=== PATIENT | female | born 1960 | race Caucasian/White ===

== ENCOUNTER → 2023-05-24 06:23 | Day surgery (SDC) | payer BC, SELFPAY | LOC: GI 06:23 | PROVIDERS: ATTENDING PHYSICIAN Internal Medicine Gastroenterology | DX: Z12.11 Encounter for screening for malignant neoplasm of colon (principal); K57.30 Diverticulosis of large intestine without perforation or abscess without bleeding; K64.8 Other hemorrhoids; K56.699 Other intestinal obstruction unspecified as to partial versus complete obstruction; D12.5 Benign neoplasm of sigmoid colon; K44.9 Diaphragmatic hernia without obstruction or gangrene; K22.2 Esophageal obstruction; K31.89 Other diseases of stomach and duodenum; K22.89 Other specified disease of esophagus; R12 Heartburn; K29.50 Unspecified chronic gastritis without bleeding; K20.0 Eosinophilic esophagitis | CPT/HCPCS: 45380; 43239; 88305; 88342 ==

== ENCOUNTER → 2023-10-18 17:50 | Outpatient (REF) | payer BC, SELFPAY | LOC: WDC 17:50 | PROVIDERS: ATTENDING PHYSICIAN Family Medicine | DX: Z12.31 Encounter for screening mammogram for malignant neoplasm of breast (principal) | CPT/HCPCS: 77063; 77067 ==

== ENCOUNTER 2024-09-28 18:13 | Inpatient (IN) | payer BC, SELFPAY ==
[2024-09-28] VITALS (7 sets, daily range): BP systolic 83–133; BP diastolic 67–90; BMI 24.0; BMI 24.2
--- NOTE | 2024-09-28 13:46 | ED.GENMED ---
History of Present Illness
General
Chief Complaint: Abdominal Symptoms
Source: patient
Exam Limitations: none
Time Seen by Provider: 09/28/24 13:45
History of Present Illness
History of Present Illness:
64yoF with a history of hyperlipidemia, asthma, migraines, GERD, and anxiety presenting for evaluation of abdominal pain. Patient woke up this morning with an upset stomach. She started to have nausea and vomiting. She then developed a tightness
in her epigastric region which radiated to the right upper quadrant. Symptoms lasted throughout the morning but seem to subside while in the waiting room. She had a similar episode about a week and a half ago. Yesterday was her birthday and she
ate shrimp tempura at a [employer] restaurant. She also had a lot of sweets. She denies any chest pain, fevers, urinary symptoms, diarrhea. Previous abdominal surgeries include a Niesen fundoplication, vaginal sling, and section.
Past History
Past History
ED Past Medical History: Asthma, GERD (hiatel hernia), Hypercholesterolemia and Other (Migraines, irritable bowel )
ED Past Surgical History:
Social History
Tobacco: Non-smoker
Alcohol: Occasional
Drug: None
Personal:
Living: with family
Employment: Employed
Phy Exam
General Physical Exam
General Presentation: well appearing and no apparent distress
General Skin: warm and dry
General Habitus: normal
General Mental: alert
ENT Exam
ENT Exam: normocephalic
Cardiovascular Exam
Cardiovascular Exam: regular rate/rhythm and no murmur
Pulmonary Exam
Pulmonary Exam: lungs clear, no respiratory distress, no rales, no crackles, no rhonchi and no wheezing
Gastrointestinal Exam
Gastrointestinal Exam: soft, non distended and other (+RUQ tenderness. +Whittaker's sign. )
Neurological Exam
Neurological Exam: alert
Kiki Coma Scale
Eye Opening: Spontaneous
Verbal Response: Oriented
Motor Response: Obeys Commands
GCS Total Score: 15
Skin Exam
Skin Exam: normal color and warm/dry
Psychiatric Exam
Psychiatric Exam: normal mood/affect
Course
Orders/Labs/Results
Orders:
Orders
09/28/24 12:30
EKG [Electrocardiogram (*1)] Urgent
Reason for Study: Chest Pain
EKG- Treatment ONCE
09/28/24 13:56
Cardiac Monitoring- Treatment ONCE
0.9% Sodium Chloride 1000 ml [Nss] 1,000 ml IV BOLUS
US Abdomen Complete/Upper Urgent
Comment:
Reason For Exam: RUQ pain
09/28/24 14:12
Complete Blood Count/With Diff Urgent
Comprehensive Metabolic Panel Urgent
Lipase Urgent
Troponin I Urgent
09/28/24 15:33
Urinalysis Reflex To Culture Urgent
Date Specimen was Collected: 09/28/24
Time Specimen was Collected: 13:57
09/28/24 16:44
Piperacillin/Tazo 4.5 Gram [Zosyn] 4.5 gram in 100 ml IV NOW
Abnormal Lab Results
09/28/24
14:12
WBC 11.6 H 10^3/uL
(4.8-10.8)
Absolute Neuts (auto) 9.5 H 10^3/uL
(1.4-6.5)
Neutrophils % 82.3 H %
(42.2-75.2)
Lymphocytes % 12.9 L %
(20.5-51.1)
Glucose 110 H mg/dl
(70-99)
AST 492 H U/L
(14-36)
ALT 217 H U/L
(0-35)
Alkaline Phosphatase 140 H U/L
(38-126)
09/28/24 14:12
09/28/24 14:12
Vital Signs
Initial and Last Documented VS:
Initial Vital Signs
Temp Pulse Resp BP Pulse Ox
98.3 F 96 16 133/90 98
09/28/24 12:02 09/28/24 12:02 09/28/24 12:02 09/28/24 12:02 09/28/24 12:02
Last Documented Vital Signs
Temp Pulse Resp BP Pulse Ox
98.6 F 71 16 83/72 100
09/28/24 14:20 09/28/24 14:20 09/28/24 14:20 09/28/24 14:20 09/28/24 14:20
MDM/Problems Addressed
Differential Diagnosis Includes:
64yoF here with RUQ pain and vomiting that began this morning. Ate at a restaurant for dinner last night. Similar episode 1.5 weeks ago. VSS. She is well appearing and does admit to feeling better. +Whittaker's sign on abdominal exam. Differential
diagnosis includes but is not limited to: Biliary colic, cholecystitis, pancreatitis, consider ACS
Initial ED plan: Triage EKG shows normal sinus rhythm without ischemic changes. Check abdominal labs, troponin, and upper abdominal ultrasound.
*Pulse Oximetry
SaO2: 98
Oxygen Mode of Delivery: Room air
Patient hypoxic: no (98%)
*EKG
Interpreted by ED Provider?: Yes
EKG Intrepretation Date: 09/28/24
Heart Rate: 76
Rate: normal
Rhythm: sinus
[place]: normal axis
Interval: normal interval
QRS Pattern: normal QRS
Ischemia: no ischemia
*Critical Care Note
Total Time (30-74mins, 75-104mins- exclusive of procedures): Not Applicable
Update Note
Update Note:
Ultrasound shows findings suggestive of cholecystitis. Common bile duct is slightly distended at 8 mm. AST 492, ALT 219, and total bilirubin is normal. White count 11.6. Lipase normal making pancreatitis unlikely. IV Zosyn ordered. General
surgery notified and patient admitted for further management.
ED Attending Note
-
Portions of this chart may have been created with voice recognition software.� Occasional wrong word or��sound alike� substitutions may have occurred due to the inherent limitations of voice recognition software.
Discharge Plan
Departure
Patient Disposition: Admit
Date of Disposition: 09/28/24
Time of Disposition: 16:45
Presentation/result/management discussed w/ accepting MD/DO: Hospitalist
Discharge Problem:
Acute cholecystitis, Transaminitis
Prescriptions:
No Action
trazodone 50 MG tablet
50 mg PO HSPRN PRN (Reason: insomnia)
hydroxyzine pamoate [Vistaril] 50 MG capsule
50 mg PO PRN PRN (Reason: anxiety)
esomeprazole magnesium [Nexium] 40 MG capsule,delayed release(DR/EC)
40 mg PO DAILY
pramipexole 0.25 MG tablet
0.25 mg PO DAILY
lisinopril 5 MG tablet
5 mg PO DAILY
sertraline 50 MG tablet
50 mg PO DAILY
lamotrigine 100 MG tablet
200 mg PO DAILY
sucralfate 1 GM/10 ML suspension
1 gm PO QID Qty: 400 0RF
Rx Instructions:
take 1 hr prior to meals and at bedtime
Referrals:
Luis Chairez DO [Family Provider, Family Practice]
Interventions
Interventions:
*Risk Screen - Suicide Last Done: 09/28/24 12:03
*General Assessment Last Done: 09/28/24 14:20
*Neglect/Abuse Screening Last Done: 09/28/24 12:03
*ED- Fall Risk Assessment Last Done: 09/28/24 14:20
*ED COVID-19 Vaccine History Last Done: 09/28/24 14:20
CS-Thwreb-Snplcrmnlv Assessment Last Done: 09/28/24 14:20
Discharge Date and Time
Print Language: BENINESE
[2024-09-28] MEDS: NSS 1000 IV ×2 (14:15→21:03)
[2024-09-28 14:18] LABS: Hematocrit 40.8 % (37.0-47.0); Hemoglobin 13.8 g/dL (12.0-16.0); Mean Corp Hgb Conc. 33.8 g/dL (33.0-37.0); Mean Corpuscular Volume 86.4 fL (81.0-99.0); Nucleated Red Blood Cells % 0 %; Platelet Count 248 10^3/uL (130-400); Red Cell Dist. Width 12.4 % (11.5-14.5)
[2024-09-28 14:42] LABS: ALT (SGPT) 217 U/L (0-35); AST (SGOT) 492 U/L (14-36); Albumin 4.7 g/dl (3.5-5.0); Alkaline Phosphatase 140 U/L (38-126); Blood Urea Nitrogen 10 mg/dl (7-17); Calcium 9.2 mg/dl (8.4-10.2); Carbon Dioxide 29 mmol/L (22-30); Chloride 104 mmol/L (98-107); Estimated Creatinine Clearance 66 ml/min; Glucose 110 mg/dl (70-99); Lipase 49 U/L (23-300); Potassium 4.5 mmol/L (3.5-5.1); Sodium 140 mmol/L (135-145); Total Protein 6.9 g/dl (6.3-8.2); eGFR > 60.00
[2024-09-28 14:53] LABS: Troponin I < 0.012 ng/ml
[2024-09-28 15:40] LABS: Urine Character Clear (Clear)
--- NOTE | 2024-09-28 17:17 | HPS.HSE ---
Family Physician
-
Family Physician: Luis Chairez
Chief Complaint
-
nausea and vomiting
History of Present Illness
HPI
64F HX hyperlipidemia, asthma,GERD, and anxiety seen at ER:
- acute onset of nausea and vomiting
- associated with tightness in her epigastric region which radiated to the right upper quadrant.
- Symptoms lasted throughout the morning but seem to subside while in the waiting room.
- similar episode about a week and a half ago.
- Yesterday was her birthday and she ate shrimp tempura at a [employer] restaurant. She also had a lot of sweets.
Previous abdominal surgeries include a Conteh fundoplication, vaginal sling, and section.
ROS
She denies any chest pain, fevers, urinary symptoms, diarrhea.
Medical History
Past Medical History
Past Medical History: Reports Asthma, GERD, HTN and Hypercholesterolemia
Past Surgical History: Reports Other
Social History
Tobacco: Non-smoker
Alcohol: None
Family History
Family History: Not pertinent
Allergies / Home Medications
Allergies reflects when Allergies were last updated in [facility].
Home Medications with original date entered in [facility]
Allergy/Medication List:
Allergies
Allergy/AdvReac Type Severity Reaction Status Date / Time
Benzodiazepines Allergy SEIZURE Verified 08/14/21 11:17
WITH
WITHDRAWAL
FROM
BENZODIAZEPINES
levofloxacin (From Levaquin) Allergy Nausea / Verified 08/14/21 11:17
Vomiting
Sulfa (Sulfonamide Allergy Hives Verified 08/14/21 11:17
Antibiotics)
Home Medications
esomeprazole magnesium 40 mg capsule,delayed release (Nexium) 40 mg PO DAILY 05/02/15
hydroxyzine pamoate 50 mg capsule (Vistaril) 50 mg PO PRN PRN anxiety 05/02/15
lamotrigine 100 mg tablet 200 mg PO DAILY 05/02/15
lisinopril 5 mg tablet 5 mg PO DAILY 05/02/15
pramipexole 0.25 mg tablet 0.25 mg PO DAILY 05/02/15
sertraline 50 mg tablet 50 mg PO DAILY 05/02/15
trazodone 50 mg tablet 50 mg PO HSPRN PRN insomnia 05/02/15
sucralfate 100 mg/mL oral suspension 1 gm PO QID #400 mL 01/12/20
Review of Systems
-
Constitutional: Reports No Symptoms
EENT: Reports No Symptoms
Respiratory: Reports No Symptoms
Cardiac: Reports No Symptoms
Abdomen/GI: Reports Abdominal Pain, Nausea and Vomiting
: Reports No Symptoms
Musculoskeletal: Reports No Symptoms
Skin: Reports No Symptoms
Neurological: Reports No Symptoms
Endocrine: Reports No Symptoms
Hematologic/Lymphatic: Reports No Symptoms
Psych: Reports No Symptoms
Physical Exam
Vital Signs
Vital Signs
Temp Pulse Resp BP Pulse Ox
98.6 F 71 16 83/72 100
09/28/24 14:20 09/28/24 14:20 09/28/24 14:20 09/28/24 14:20 09/28/24 14:20
Physical Exam
General: Well Developed, Well Nourished and No Apparent Distress
HEENT: NormoCephalic, Moist mucous membranes and Atraumatic
Respiratory: Clear
Cardiac: S1/S2 and Regular Rhythm; No Murmur or Rub
GI: Soft, Non Distended, Normal Bowel Sounds and Tender (RUQ tenderness with deep palpation ); No Organomegaly
Rectal: Deferred by Provider
Musculoskeletal: No Clubbing, No Cyanosis and No Edema
Skin: No Rash
Neuro: Nonfocal/grossly intact
Laboratory Results
-
09/28/24 14:12
09/28/24 14:12
Laboratory Results
Total Bilirubin 1.1 mg/dl (0.2-1.3) 09/28/24 14:12
AST 492 U/L (14-36) H 09/28/24 14:12
ALT 217 U/L (0-35) H 09/28/24 14:12
Alkaline Phosphatase 140 U/L (38-126) H 09/28/24 14:12
Troponin I < 0.012 ng/ml 09/28/24 14:12
Lipase 49 U/L (23-300) 09/28/24 14:12
Data Reviewed
-
Ultrasound: Report Reviewed by me
Lab Data: Labs Reviewed by me
Impression/Plan
-
Vital Signs
Temp Pulse Resp BP Pulse Ox
98.6 F 71 16 83/72 100
09/28/24 14:20 09/28/24 14:20 09/28/24 14:20 09/28/24 14:20 09/28/24 14:20
Abnormal Lab Results
09/28/24
14:12
WBC 11.6 H
Absolute Neuts (auto) 9.5 H
Neutrophils % 82.3 H
Lymphocytes % 12.9 L
Glucose 110 H
AST 492 H
ALT 217 H
Alkaline Phosphatase 140 H
EKG
NORMAL SINUS RHYTHM
NORMAL ECG
WHEN COMPARED WITH ECG OF 14-Aug-2021 11:31,
QT HAS SHORTENED
US Abdomen Complete/Upper
- Cholelithiasis with 6 mm gallstone.
- Gallbladder wall thickening. This could suggest cholecystitis in the proper clinical setting.
- However, negative sonographic Whittaker sign. Recommend correlation with any pain medication administration.
- Slightly distended common bile duct, 8 mm.
- Mild fatty infiltration of liver. Hepatic cysts. Tiny left renal cyst.
ASSESSMENT & PLAN
Suspect acute calculus cholecystitis with dilated CBD
Cholelithiasis with 6 mm gallstone with Biliary colic
RUQ tenderness with deep palpation
Leucocytosis +Nl TB with significant transaminitis, normal lipase
POS US for GBWT but no PCF
- GS consulted
- NPO and IVF
- PRN IV narcotic
- PRN antiemetics
- agree with empiric Zosyn
Hypotensive on arrival
Benign HTN
- Hold Lisinopril
GERD
- IV PPI in pacer of PO PPI daily m
Known HX
HLD
Anxiety; on Sertraline
DVT Px: SCD
Full code
IP MS
[2024-09-28] MEDS: ZOSYN 100 IV (17:43)
--- NOTE | 2024-09-28 19:49 | CON.GS ---
Consultation
-
Date/Time Consultation Performed: 09/28/2024
Performing Provider: Demetrius Peña MD
Reason for Consultation: Cholecystitis
Medical History
-
History of Present Illness:
Patient is a 64-year-old female with PMH of HLD, anxiety, breast cancer s/p RT and right lumpectomy, GERD s/p Yaritza 12 years ago with recurrent symptoms who presents for concern of right upper quadrant abdominal pain. This occurred 1 week ago and
resolved after few hours. It recurred again earlier today. She described the pain as epigastric, radiating to the right upper quadrant, constant in nature. Associated with N/V. This episode did not improve so she came to the ED. She denies
chest pain, but had some associated dyspnea. Denies fevers, urinary symptoms or change in bowel habits. In the ED, WBC was 11.6, T. bili 1.1, AST 492, ALT 217, lipase 49, CR 0.7, RUQ U/S showing gallstones, gallbladder wall thickening and elevated
CBD up to 8 mm.
Past Medical History
Past Medical History: Other (As above)
Past Surgical History: Other (Yaritza 12 years ago, right lumpectomy, vaginal sling, , cataracts)
Social History
Tobacco: Non-Smoker
Alcohol: None
Drug: None
Family History
Family History: Reviewed & Not Pertinent (No family history of CRC, family history of breast cancer)
Allergies / Home Medications
Allergy/AdvReac Type Severity Reaction Status Date / Time
Benzodiazepines Allergy SEIZURE Verified 08/14/21 11:17
WITH
WITHDRAWAL
FROM
BENZODIAZEPINES
levofloxacin (From Levaquin) Allergy Nausea / Verified 08/14/21 11:17
Vomiting
Sulfa (Sulfonamide Allergy Hives Verified 08/14/21 11:17
Antibiotics)
�Medication �Instructions �Recorded �Confirmed �Type
esomeprazole magnesium 40 mg 40 mg PO DAILY 05/02/15 09/28/24 History
capsule,delayed release (Nexium)
hydroxyzine pamoate 50 mg capsule 50 mg PO PRN PRN anxiety 05/02/15 09/28/24 History
(Vistaril)
lamotrigine 100 mg tablet 200 mg PO DAILY 05/02/15 09/28/24 History
lisinopril 5 mg tablet 5 mg PO DAILY 05/02/15 09/28/24 History
pramipexole 0.25 mg tablet 0.25 mg PO DAILY 05/02/15 09/28/24 History
sertraline 50 mg tablet 50 mg PO DAILY 05/02/15 09/28/24 History
trazodone 50 mg tablet 50 mg PO HSPRN PRN insomnia 05/02/15 09/28/24 History
sucralfate 100 mg/mL oral 1 gm PO QID #400 mL 01/12/20 09/28/24 Rx
suspension
Review of Systems
-
A 10 point review of systems was completed, and was negative except as per HPI.
Physical Exam
Vital Signs
Temp Pulse Resp BP Pulse Ox
97.8 F 76 20 115/81 98
09/28/24 19:41 09/28/24 18:05 09/28/24 18:05 09/28/24 18:05 09/28/24 19:41
09/27/24 09/28/24 09/29/24
06:59 06:59 06:59
Actual Weight 59.421 kg
Body Mass Index (BMI) 24.0
Lab Results
09/28/24 14:12
09/28/24 14:12
WBC 11.6 10^3/uL (4.8-10.8) H 09/28/24 14:12
Hgb 13.8 g/dL (12.0-16.0) 09/28/24 14:12
Hct 40.8 % (37.0-47.0) 09/28/24 14:12
Plt Count 248 10^3/uL (130-400) 09/28/24 14:12
Abs Immat Gran (auto) 0.0 10^3/uL (0-0.05) 09/28/24 14:12
Neutrophils % 82.3 % (42.2-75.2) H 09/28/24 14:12
Physical Exam
General: Well Developed, Well Nourished and No Apparent Distress
HEENT: Normocephalic and Atraumatic
Respiratory: Non Labored Respirations
GI: Soft, Non Distended and Tender (Mildly tender in the RUQ without rebound or guarding; equivocal Whittaker sign)
Skin: Warm and Dry
Neuro: AO x 3
Data Reviewed
-
Ultrasound: Image Personally Visualized and interpreted and Discussed with Patient
Labs: Labs Reviewed by me and Discussed with Patient
Assessment / Plan
-
64-year-old female with PMH of HLD, anxiety, breast cancer s/p RT and right lumpectomy, GERD s/p Yaritza 12 years ago with recurrent symptoms who presents for concern of right upper quadrant abdominal pain. This occurred 1 week ago and resolved
after few hours. It recurred again earlier today. She described the pain as epigastric, radiating to the right upper quadrant, constant in nature. Associated with N/V. This episode did not improve so she came to the ED. She denies chest pain,
but had some associated dyspnea. Denies fevers, urinary symptoms or change in bowel habits. In the ED, WBC was 11.6, T. bili 1.1, AST 492, ALT 217, lipase 49, CR 0.7, RUQ U/S showing gallstones, gallbladder wall thickening and elevated CBD up to 8
mm.
AFVSS
�Concerning for acute cholecystitis, possible choledocholithiasis
�Reviewed pathophysiology of gallstones, cholecystitis and choledocholithiasis; as her T. bili is normal, but there was slight elevation in LFTs and diameter of CBD, it is possible that she either passed a stone or has early choledocholithiasis;
would trend labs in the a.m. to see if there is improvement; if so, discussed possible cholecystectomy this admission due to risk of recurrence; if there is any concern for choledocholithiasis on repeat labs, can consider MRCP versus ERCP versus
intraoperative cholangiogram; explained that general surgery would take over her care starting tomorrow
�No acute surgical intervention currently indicated
� Continue n.p.o. with IVF
� Continue IV Zosyn
� Recommend DVT PPx
� Appreciate hospitalist
--- NOTE | 2024-09-28 21:00 | PTCARENOTE ---
Receive pt from ER. Pt alert oriented X3, pleasant and cooperative, in no distress. Pt assisted X1 to bed. Pt oriented to the room, call carnes within reach. Pt denies abd pain, nausea, or vomiting. VSS (T=98.2, HR=92, RR=18, BI=689/71, SpO2=97% on
RA). Pt is NPO, IVFs infusing as per order. Will continue to monitor the pt..
[2024-09-28] MEDS: MIRAPEX 0.25 MG PO (21:04)
[2024-09-29] VITALS (14 sets, daily range): BP systolic 98–132; BP diastolic 61–83
[2024-09-29] MEDS: ZOSYN 50 IV ×4 (02:19→20:21)
[2024-09-29] MEDS: TORADOL 15 MG IV ×2 (02:25→20:29)
[2024-09-29] MEDS: TIGAN 200 MG IM (02:53)
[2024-09-29] MEDS: PROTONIX IV 40 MG IV (08:24)
[2024-09-29] MEDS: NSS (PRESERVATIVE FREE) 10 ML IV (08:24)
[2024-09-29] MEDS: ZOLOFT 75 MG PO (08:24)
[2024-09-29] MEDS: LAMICTAL 200 MG PO (08:24)
[2024-09-29 09:10] LABS: Hematocrit 37.3 % (37.0-47.0); Hemoglobin 12.5 g/dL (12.0-16.0); Mean Corp Hgb Conc. 33.5 g/dL (33.0-37.0); Mean Corpuscular Volume 86.9 fL (81.0-99.0); Platelet Count 220 10^3/uL (130-400); Red Cell Dist. Width 12.9 % (11.5-14.5)
[2024-09-29 09:17] LABS: INR 1.05; PT 14.0 Sec (11.4-14.6)
[2024-09-29] MEDS: NSS 1000 IV (09:29)
[2024-09-29 09:41] LABS: ALT (SGPT) 410 U/L (0-35); AST (SGOT) 366 U/L (14-36); Albumin 3.7 g/dl (3.5-5.0); Alkaline Phosphatase 145 U/L (38-126); Blood Urea Nitrogen 9 mg/dl (7-17); Calcium 8.4 mg/dl (8.4-10.2); Carbon Dioxide 28 mmol/L (22-30); Chloride 107 mmol/L (98-107); Estimated Creatinine Clearance 58 ml/min; Glucose 106 mg/dl (70-99); Lipase 40 U/L (23-300); Potassium 4.4 mmol/L (3.5-5.1); Sodium 138 mmol/L (135-145); Total Protein 5.8 g/dl (6.3-8.2); eGFR > 60.00
--- NOTE | 2024-09-29 09:55 | W.PN.GS2 ---
Today's Communication / Plan
-
OR today
Assessment / Plan
-
64 yo with h/o breast CA, Yaritza 12 years ago, vaginal sling, presenting with RUQ pain, suspect acute calculous cholecystitis. Bilirubin normal, transaminitis present. Leukocytosis resolved on labs today but with left shift. Afebrile,
vitals stable.
Plan:
NPO for OR today. Will plan laparoscopic cholecystectomy with cholangiogram to evaluate the biliary tree
Continue ABX
Analgesics/antiemetics prn
Subjective Data
-
Date of Service: September 29, 2024
Pt seen and examined at bedside with Dr. Gomez. Franci n/v. Still with RUQ tenderness. Questions addressed.
Objective Data
-
Intake and Output
09/28/24 09/29/24 09/30/24
06:59 06:59 06:59
Intake Total 750 / 750
Balance 750 / 750
Intake:
Oral fluids 0 / 0
IV fluids (Total) 700 / 700
IV piggybacks 50 / 50
Other:
Number of approximated MODERATE 2
amounts of urine
Vital Signs
Temp Pulse Resp BP Pulse Ox
98.2 F 70 18 116/73 98
09/29/24 07:48 09/29/24 07:48 09/29/24 07:48 09/29/24 07:48 09/29/24 07:48
Lab Results
09/29/24 08:55
09/29/24 08:55
Calcium 8.4 mg/dl (8.4-10.2) 09/29/24 08:55
Total Bilirubin 0.7 mg/dl (0.2-1.3) 09/29/24 08:55
AST 366 U/L (14-36) H 09/29/24 08:55
ALT 410 U/L (0-35) H 09/29/24 08:55
Alkaline Phosphatase 145 U/L (38-126) H 09/29/24 08:55
Total Protein 5.8 g/dl (6.3-8.2) L 09/29/24 08:55
Albumin 3.7 g/dl (3.5-5.0) 09/29/24 08:55
Physical Exam
-
NAD
ABD soft, RUQ tenderness, nd
--- NOTE | 2024-09-29 10:09 | W.SUR.PREOP ---
Pre-Operative Surgical Note
-
I have examined this patient prior to the performance of the scheduled procedure.
The patient's condition is unchanged from the time of the current History and
Physical and the patient is able to undergo the scheduled procedure.
--- NOTE | 2024-09-29 12:02 | CM ---
Placed a call to patient's spouse as patient was in procedure. Patient's spouse Jarad (not son as listed on chart), stated that patient lives with him in a two story single home with one steps to enter. He described her as independent with all
ADLs, personal care, dressing and bathing. She can cook, clean, do community aide and laundry. She drives and can get to appointments and and do all of her own shopping. She has never had VN. She has not been to a SNF in the past.
Patient has a prescription plan and uses, [facility] in [place] for all of her medications.
Her PCP is, Luis Chairez.
Plan: Case management will continue to follow and assist with discharge planning. Should be home no needs.
--- NOTE | 2024-09-29 13:46 | W.IMMPOSTOP ---
Surgical Immed Post Op Note
-
Primary Surgeon: Krishna Gomez MD
Assisting Surgeon: None
Pre-op Diagnosis: Acute cholecystitis
Post-op Diagnosis: Same
Procedure Performed: Laparoscopic cholecystectomy with cholangiogram
Anesthesia Type: General
Specimen / Cultures: Gallbladder and contents
Estimated Blood Loss: 7 cc
Complications: None
Operative Findings: Inflamed and edematous gallbladder. Critical view of safety obtained prior to cholangiogram which demonstrated normal but mildly dilated biliary anatomy and no distal filling defects. Duct ligated with a clip followed by 0 PDS
Endoloop.
POST OP PLAN:
Imaging: None
Labs: Routine AM
Diet: Advance to Regular as tolerated
Analgesia: Tylenol 650mg q6 Chris, Dilaudid 0.5mg q2h PRN
Neuro/vascular checks: Per unit protocol
AC/AP: Hold Therapeutic AC, Ok for DVT PPx
Activity: Ad Mary
Wound/Incisions/Drains: Routine
Abx: None
Dispo: RNF, anticipate discharge home later today versus early tomorrow. General surgery is taking over as primary.
--- NOTE | 2024-09-29 13:47 | OR.RPT ---
Operative Report
Operative Report
Patient Name: Clarissa Tesfaye
: 1960
Date of Operation: 09/29/2024
Preoperative Diagnosis: Acute cholecystitis
Postoperative Diagnosis: Same
Procedure(s):
Laparoscopic Cholecystectomy with Cholangiogram
Surgeon(s):
Dr. Gomez
Social Security Specialist(s):
Laura Morfin NP
Anesthesia: General
Estimated Blood Loss: 7 cc
Urine Output: None
Drains/Lines/Implants: None
Specimens:
1. Gallbladder and contents
HPI/Surgical Indications:
This is a 64-year-old female with a history of a previous laparoscopic Yaritza fundoplication who presents with 1 day of right upper quadrant abdominal pain. Exam, labs and imaging are consistent with early acute cholecystitis.
Risks/Benefits/Alternatives were discussed at length, and the patient agreed to proceed with surgery.
Operative Findings: Inflamed and edematous gallbladder. Critical view of safety obtained prior to cholangiogram which demonstrated normal biliary anatomy and no distal filling defects. Duct ligated with a clip followed by 0 PDS Endoloop.
Procedure Description:
The patient was brought to the Operating Room and placed in the supine position with one arm tucked. Following uneventful induction of general endotracheal anesthesia, an orogastric tube was placed. The abdomen was prepped and draped in the usual
sterile fashion. A timeout was performed confirming the procedure, consent, and that IV antibiotics were infused and sequential compression devices were confirmed to be on. The abdomen was entered using a left subcostal Veress technique which
required a single pass followed by a 5 mm right upper quadrant Optiview trocar. Pneumoperitoneum to 15 mmHg pressure was obtained without difficulty and we confirmed that no injury had occurred during our entry. The patient was positioned in
reverse Trendelenberg and rotated with the right side up slightly. Two 5 mm trocars were then placed along the right subcostal margin, followed by a 12 mm port in the epigastrium. A locking grasping forceps was placed on the fundus of the
gallbladder where it was then retracted cephalad and to the right. There were some flimsy adhesions to the overlying surface which were lysed with electrocautery and blunt dissection. Using appropriate grasping instruments, the peritoneum
overlying the triangle of Calot was incised and extended superiorly on both the anterior and posterior gallbladder cortez. The infundibulum was dissected off the cystic plate. The cystic triangle was dissected until a critical view of safety was
achieved. The cystic artery was medialized, dissected and controlled with 2 proximal clips and 1 distal. The cystic duct/gallbladder junction in turn was identified, dissected circumferentially and a clip was placed. A ductotomy was made and a
cholangiocatheter on an Zhu clamp was inserted into the cystic duct. A C-arm was draped and brought into the field. An intra-operative cholangiogram was performed and was noted to have:
No filling defects in the biliary tree
Mild biliary dilation
Brisk flow of contrast into the duodenum
Normal biliary anatomy
The catheter was then removed and the cystic duct was controlled with a clip followed by 0 PDS Endoloop. After ensuring both the artery and duct were divided, the gallbladder was freed from the liver using electrocautery. There was some spillage
of bile from our ductotomy, but no spillage of stones. The gallbladder bed was inspected and excellent hemostasis was obtained. The gallbladder was extracted through the 12 mm trocar site using an endocatch bag. The abdomen was again irrigated and
excellent hemostasis was assured. There was a fairly large superficial cyst over segment 7/8 noted. All remaining trocars were then removed and the pneumoperitoneum was evacuated. The 12 mm trocar site was closed using 0 PDS suture. All trocar
sites were closed at the skin level using 4-0 Monocryl followed by Dermabond. Overall, the patient tolerated the procedure well and was taken to the Recovery Room postoperatively in stable condition.
I was the attending physician and performed the procedure with assistance of the TELEVISION JOURNALIST above. The assistance of Laura Morfin NP was required due to the complexity of the procedure. During the procedure Laura assisted with port placement, providing
traction and countertraction on the gallbladder as well as held camera. I was present for all portions of the case.
Krishna Gomez MD
[2024-09-29] MEDS: ZOFRAN 4 MG IV (14:00)
[2024-09-29] MEDS: COMPAZINE 5 MG IV (14:30)
--- NOTE | 2024-09-29 17:12 | PTCARENOTE ---
Returned from lap dipti in OR with 5 lap sites CDI. Ice to abdomen. Call carnes within reach.
--- NOTE | 2024-09-29 18:23 | W.PN.HOSP.TC ---
Today's Communication/Plan
-
OR today
Assessment / Plan
Assessment / Plan
Suspect acute calculus cholecystitis with dilated CBD
Cholelithiasis with 6 mm gallstone with Biliary colic
RUQ tenderness with deep palpation
Leucocytosis +Nl TB with significant transaminitis, normal lipase
POS US for GBWT but no PCF
- GS consulted - OR today
- NPO and IVF
- PRN IV narcotic
- PRN antiemetics
- agree with empiric Zosyn
Hypotensive on arrival
Benign HTN
- Hold Lisinopril until needed
GERD
- IV PPI in pacer of PO PPI daily m
Known HX
HLD
Anxiety; on Sertraline
DVT Px: SCD
Full code
Surgery taking over as primary, medicine happy to remain on as consult if desired
Anticipated Discharge: 24 - 48 hours
Subjective/Interval History
-
Date of Service: September 29, 2024
Patient seen early this a.m. prior to surgery. She denied any pain.
Objective Data
-
Labs:
Laboratory Results
09/29/24
08:55
WBC 5.2
Hgb 12.5
Hct 37.3
Plt Count 220
PT 14.0
INR 1.05
Sodium 138
Potassium 4.4
Chloride 107
Carbon Dioxide 28
BUN 9
Creatinine 0.8
Glucose 106 H
Calcium 8.4
Total Bilirubin 0.7
AST 366 H
ALT 410 H
Alkaline Phosphatase 145 H
Vital Signs:
Vital Signs
Temp Pulse Resp BP Pulse Ox
98.8 F 58 16 126/73 96
09/29/24 17:20 09/29/24 17:20 09/29/24 17:20 09/29/24 17:20 09/29/24 17:20
I&O
09/28/24 09/29/24 09/30/24
06:59 06:59 06:59
Intake Total 750 / 750 450 / 450
Output Total 100 / 100
Balance 750 / 750 350 / 350
Review of Systems
-
All other systems: Reviewed and negative
Physical Exam
-
General: No Apparent Distress
HEENT: Moist Mucous Membranes, Anicteric and PERRLA
Respiratory: Clear to Auscultation; Negative Wheezes, Rales or Rhonchi
Cardiac: Regular Rhythm and S1/S2; Negative Murmur, Rub or Gallop
GI: Soft, Nondistended, Normal Bowel Sounds and Tender (Right upper quadrant)
Musculoskeletal: No Edema
Skin: Warm and Dry; Negative Rash, Ulcers or Lesions
Neuro: Awake and AO x 3
Hematologic / Lymphatic: No Lymphadenopathy
Psych: Calm
Data Reviewed
-
CT Scan: Report Reviewed by me
Labs: Labs Reviewed by me
[2024-09-29 18:57] LABS: Hepatitis C Antibody Negative (Negative)
[2024-09-29] MEDS: MIRAPEX 0.25 MG PO (20:28)
[2024-09-30] MEDS: ZOSYN IV (02:55)
[2024-09-30] MEDS: NSS 1000 IV (03:11)
[2024-09-30] MEDS: TORADOL IV (03:13)
[2024-09-30 03:15] VITALS: BP 116/48
[2024-09-30] MEDS: TORADOL 15 MG IV (05:10)
[2024-09-30] MEDS: ZOSYN 50 IV ×2 (05:13→11:53)
--- NOTE | 2024-09-30 07:18 | PTCARENOTE ---
Pt aaox3 able to make her needs known.Pt c/o Headache overnight PRN toradol given as ordered & Ice packs. 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
time,pt refused dilaudid at this time.Call carnes in reach.
[2024-09-30 07:25] VITALS: BP 108/76
--- NOTE | 2024-09-30 07:47 | W.PN.GS2 ---
Addendum entered and electronically signed by Krishna Gomez MD 09/30/24 13:07:
I saw and examined the patient independently.
The resident's documentation was reviewed and I agree with the note, assessment and plan except where noted below.
Comment: 64-year-old female postoperative day 1 from a laparoscopic cholecystectomy and cholangiogram for acute cholecystitis. Doing well, expected postoperative course.
Will DC today. No antibiotics on discharge.
Original Note:
Today's Communication / Plan
-
currently pt has no sign for acute bleeding
planning for the discharge
Assessment / Plan
-
64 yo with h/o breast CA, Yaritza 12 years ago, vaginal sling, presenting with RUQ pain, suspect acute calculous cholecystitis, transaminitis on POD 1- Laparoscopic cholecystectomy with cholangiogram
Afebrile, vitals stable.
WBC- 5.2 (n)--> 9.7 (n) ; Hb- 12.5 (n)---> 11.8 (l)
s/p laparoscopic cholecystectomy with normal cholangiogram with mildly dilated biliary anatomy.
Piperacillin/ Tazobactam DAY 2
Analgesics/antiemetics prn
pt is tolerating clear fluids, advance the diet.
Subjective Data
-
Date of Service: September 30, 2024
Overnight patient doesn't have a concern for abdominal pain, nausea, vomiting, bloating. passed flatus for today.
ambulating around the room.
Objective Data
-
Intake and Output
09/29/24 09/30/24 10/01/24
06:59 06:59 06:59
Intake Total 750 / 750 1350 / 1350
Output Total 100 / 100
Balance 750 / 750 1250 / 1250
Intake:
Oral fluids 0 / 0 900 / 900
IV fluids (Total) 700 / 700 450 / 450
Normosol 450 / 450
IV piggybacks 50 / 50
Output:
Urine, Voided 100 / 100
Other:
Number of approximated MODERATE 2 3
amounts of urine
Vital Signs
Temp Pulse Resp BP Pulse Ox
98.4 F 71 18 116/48 96
09/30/24 03:15 09/30/24 03:15 09/30/24 03:15 09/30/24 03:15 09/30/24 03:15
Calcium 8.4 mg/dl (8.4-10.2) 09/29/24 08:55
Total Bilirubin 0.7 mg/dl (0.2-1.3) 09/29/24 08:55
AST 366 U/L (14-36) H 09/29/24 08:55
ALT 410 U/L (0-35) H 09/29/24 08:55
Alkaline Phosphatase 145 U/L (38-126) H 09/29/24 08:55
Total Protein 5.8 g/dl (6.3-8.2) L 09/29/24 08:55
Albumin 3.7 g/dl (3.5-5.0) 09/29/24 08:55
Physical Exam
-
General: No Apparent Distress
Cardiac: Regular Rhythm and S1/S2; Negative Murmur, Rub or Gallop
GI: Soft, Nondistended, Normal Bowel Sounds and non Tender.
Skin: Warm and Dry; Negative Rash, Ulcers or Lesions
Neuro: Awake and AO x 3
Psych: Calm
Patient has a fitch catheter: No
Patient has a central line: No
[2024-09-30] MEDS: PROTONIX IV 40 MG IV (09:00)
[2024-09-30] MEDS: LAMICTAL 200 MG PO (09:00)
[2024-09-30] MEDS: ZOLOFT 75 MG PO (09:01)
[2024-09-30] MEDS: NSS (PRESERVATIVE FREE) 10 ML IV (09:01)
[2024-09-30 09:43] LABS: Hematocrit 34.7 % (37.0-47.0); Hemoglobin 11.8 g/dL (12.0-16.0); Mean Corp Hgb Conc. 34.0 g/dL (33.0-37.0); Mean Corpuscular Volume 85.7 fL (81.0-99.0); Nucleated Red Blood Cells % 0 %; Platelet Count 231 10^3/uL (130-400); Red Cell Dist. Width 12.6 % (11.5-14.5)
[2024-09-30 10:32] LABS: ALT (SGPT) 268 U/L (0-35); AST (SGOT) 117 U/L (14-36); Albumin 3.9 g/dl (3.5-5.0); Alkaline Phosphatase 134 U/L (38-126); Blood Urea Nitrogen 10 mg/dl (7-17); Calcium 8.5 mg/dl (8.4-10.2); Carbon Dioxide 24 mmol/L (22-30); Chloride 107 mmol/L (98-107); Estimated Creatinine Clearance 58 ml/min; Glucose 107 mg/dl (70-99); Potassium 4.0 mmol/L (3.5-5.1); Sodium 137 mmol/L (135-145); Total Protein 6.0 g/dl (6.3-8.2); eGFR > 60.00
[2024-09-30] MEDS: NSS IV (11:18)
[2024-09-30 12:28] VITALS: BP 92/56
== END 2024-09-30 15:27 | disposition home or self-care (01) | DRG 419 ==
LOC: 4 EAST ACU 18:13
PROVIDERS: Physician Assistant; ADMITTING PHYSICIAN Internal Medicine; ATTENDING PHYSICIAN Surgery; EMERGENCY PHYSICIAN Emergency Medicine; FAMILY PHYSICIAN Family Medicine; OTHER PHYSICIAN Surgery
PROC: BF101ZZ Fluoroscopy of Bile Ducts using Low Osmolar Contrast (ICD-10-PCS; 2024-09-29)
PROC: 0FT44ZZ Resection of Gallbladder, Percutaneous Endoscopic Approach (ICD-10-PCS; 2024-09-29)
DX: K81.0 Acute cholecystitis (principal); J45.909 Unspecified asthma, uncomplicated; F41.9 Anxiety disorder, unspecified; E78.00 Pure hypercholesterolemia, unspecified; K21.9 Gastro-esophageal reflux disease without esophagitis; K58.9 Irritable bowel syndrome, unspecified; Z79.899 Other long term (current) drug therapy; G43.909 Migraine, unspecified, not intractable, without status migrainosus; I10 Essential (primary) hypertension; Z88.1 Allergy status to other antibiotic agents; Z88.2 Allergy status to sulfonamides
CPT/HCPCS: 74300; 76000; 76700; 80053; 81003; 83690; 84484; 85025; 85027; 85610; 86803; 88304; 93005; 96360; 99285; A4300